=== PATIENT | male | born 1940 | race Caucasian/White ===

== ENCOUNTER 2016-08-29 05:31 | Inpatient (IN) ==
[2016-08-29] MEDS ORDERED: VANCOMYCIN INJ 1,000 MG in SODIUM CHLORIDE 0.9% 250 ML IV ONE (06:00)
[2016-08-29] MEDS ORDERED: ceFAZolin 2,000 MG in PREMIX 1 EACH IV ONE (06:00)
[2016-08-29] MEDS ORDERED: VANCOMYCIN 1,000 MG VIAL ONE (06:04)
[2016-08-29] MEDS ORDERED: LORazepam 1 MG TABLET PO ONE (06:30)
[2016-08-29] MEDS ORDERED: FAMOTIDINE 20 MG TABLET PO ONE (06:30)
[2016-08-29 06:42] LABS: Partial Thromboplastin Time 25.9 SECS (0-40)
[2016-08-29] MEDS: LACTATED RINGERS 1,000 ML IV SCH ×5 (07:45→23:00)
[2016-08-29] MEDS ORDERED: FAMOTIDINE 20 MG TABLET ONE (07:48)
[2016-08-29] MEDS ORDERED: LORazepam 1 MG TABLET ONE (07:48)
[2016-08-29] MEDS ORDERED: EPINEPHrine 1 MG/ML VIAL ONE (10:08)
[2016-08-29] MEDS ORDERED: methylPREDNISolone SOD SUC 125 MG/2 ML VIAL ONE (10:08)
[2016-08-29] MEDS ORDERED: MORPHINE 10 MG/1 ML VIAL ONE (10:08)
[2016-08-29] MEDS ORDERED: BUPIVACAINE 0.5% 50 ML VIAL ONE (10:08)
[2016-08-29] MEDS ORDERED: ONDANSETRON 4 MG/2 ML VIAL IV PRN ×2 (11:04→13:19)
[2016-08-29] MEDS ORDERED: diphenhydrAMINE CAP 25 MG CAPSULE PO PRN (11:04)
[2016-08-29] MEDS ORDERED: MORPHINE 2 MG/1 ML SYRINGE IV PRN (11:04)
[2016-08-29] MEDS ORDERED: MAGNESIUM HYDROXIDE SUSP 30 ML UDCUP PO PRN (11:04)
[2016-08-29] MEDS ORDERED: TEMAZEPAM 7.5 MG CAPSULE PO PRN (11:04)
[2016-08-29] MEDS ORDERED: MORPHINE PCA 30 MG/30 ML SYRINGE IV SCH (11:30)
[2016-08-29] MEDS ORDERED: TRANEXAMIC ACID 1,000 MG/10 ML VIAL IV ONE (12:31)
[2016-08-29] MEDS ORDERED: GLYCOPYRROLATE 0.4 MG/2 ML VIAL ONE (13:13)
[2016-08-29] MEDS ORDERED: ROCURONIUM 100 MG/10 ML VIAL IV ONE (13:13)
[2016-08-29] MEDS ORDERED: PHENYLEPHRINE 1 MG/10 ML SYRINGE IV ONE (13:13)
[2016-08-29] MEDS ORDERED: NEOSTIGMINE 10 MG/10 ML VIAL ONE (13:13)
[2016-08-29] MEDS ORDERED: PROPOFOL 200 MG/20 ML VIAL IV ONE (13:13)
[2016-08-29] MEDS ORDERED: ONDANSETRON 4 MG/2 ML VIAL ONE (13:13)
[2016-08-29] MEDS ORDERED: PHENYLEPHRINE 50 MG/5 ML VIAL ONE (13:13)
[2016-08-29] MEDS ORDERED: HYDROmorphone 2 MG/1 ML VIAL IV PRN (13:19)
[2016-08-29] MEDS ORDERED: MORPHINE PCA 30 MG/30 ML SYRINGE IV ONE (13:20)
[2016-08-29] MEDS ORDERED: MIDAZOLAM 2 MG/2 ML VIAL ONE (13:24)
[2016-08-29] MEDS ORDERED: fentaNYL 100 MCG/2 ML VIAL ONE (13:24)
[2016-08-29] MEDS ORDERED: SEVOFLURANE 1 UNIT/15 MINUTE INH ONE (13:24)
[2016-08-29] MEDS ORDERED: LACTATED RINGERS 2,000 ML IV ONE (13:25)
[2016-08-29] MEDS ORDERED: SODIUM CHLORIDE 0.9% 250 ML IV ONE (13:25)
[2016-08-29] MEDS ORDERED: ACETAMINOPHEN 1,000 MG/100 ML VIAL IV ONE (13:25)
[2016-08-29] MEDS ORDERED: ePHEDrine 50 MG/ML AMP ONE (13:27)
--- NOTE | 2016-08-29 13:33 | Anesthesia ---
Anesthesia Post OP - Post Ansesthetic Evaluation Patient seen in post op: Yes Resp: within normal limits CV: within normal limits Mental: within normal limits Temp: within normal limits [id number]: within normal limits Nausea and Vomiting: within normal limits Pain: within normal limits
[2016-08-29 13:36] LABS: Apearance,Urine CLEAR (Clear); Bilirubin,Urine Negative (Negative); Blood, Urine Negative (Negative); Glucose,Urine (UA) Negative (Negative); Ketones,Urine Negative (Negative); Nitrite,Urine Negative (Negative); Protein,Urine Negative; RBC,Urine <1 /HPF (0-4); Urine Color Straw (Yellow); Urine Specific Gravity 1.005 (1.001-1.035); Urine Urobilinogen < 2.0 EU/DL (0.2-1.0)
[2016-08-29 14:48] LABS: Basophils % 0.3 % (0.0-0.8); Eosinophils # 0.2 10*3/uL (0.0-0.87); Eosinophils % 1.4 % (0.00-10.9); Hemoglobin 13.6 GM/DL (14.0-18.0); Immature Granulocytes % 0.8 %; Immature Granulocytes Absolute 0.09 #; Lymphocytes # 1.7 10*3/uL (1.4-4.0); Lymphocytes % 14.1 % (21.2-54.2); Mean Corpuscular Hemoglobin 33 PG (27-34); Mean Corpuscular Volume 96.4 FL (87-102); Monocytes # 0.8 10*3/uL (0.11-0.8); Monocytes % 6.7 % (1.7-12.7); Neutrophils # 9.1 10*3/uL (1.4-7.4); Neutrophils % 76.7 % (38.7-73.9); Platelet Count 159 T/CUMM (130-400); Red Blood Count 4.15 MC/CUMM (3.8-5.5); Red Cell Distribution Width 13.4 % (9.3-17.3); White Blood Count 11.8 T/CUMM (4-12)
[2016-08-29 15:10] LABS: Calcium 8.3 MG/DL (8.5-10.1); Osmolality,Calculated 280.3 MOS/KG (273-304); Potassium 4.4 MMOL/L (3.5-5.1)
--- NOTE | 2016-08-29 15:36 | XRay Report ---
Referring Physician: Stevan Arciniega Exam: XR hip 1V RT Date: August 29, 2016 at 11:09 AM Reason: Joint replacement right hip Comparison: Right hip x-rays August 29, 2016 Findings: The patient is status post right total hip replacement. Position and alignment appear satisfactory. A surgical drain and surgical skin theresa are seen at the lateral aspect of the right hip. No acute fracture, dislocation or osseous destructive process is identified. Impression: The patient is status post right total hip replacement. Position and alignment appear satisfactory. PROCEDURE INTERPRETED AT [facility] DEPARTMENT OF RADIOLOGY Final Report Signed by: Dr. Mihir Anand
[2016-08-29] MEDS: KETOROLAC 15 MG/1 ML VIAL IV SCH ×2 (15:37→18:11)
[2016-08-29] MEDS: DILTIAZEM 90 MG TABLET PO SCH ×2 (15:44→21:24)
[2016-08-29] MEDS: ACETAMINOPHEN 500 MG TABLET PO SCH ×2 (15:44→20:42)
[2016-08-29] MEDS: ceFAZolin 2,000 MG in PREMIX 1 EACH IV SCH (15:45)
--- NOTE | 2016-08-29 16:33 | Orthopedic Progress Note ---
Assessment and Plan (1) Status post total replacement of right hip Status: Acute Assessment and plan: Restart Coumadin for DVT prophylaxis Routine postop antibiotics Out of bed with therapy twice daily Discharge planning Current Visit: Yes Orthopedics - Subjective Interval history: Patient has no complaints. Pain is controlled. He sitting in the chair at the bedside. On exam his dressings clean and dry, he is neurovascularly intact. Exam - Constitutional Vitals: Period Temp Pulse Resp BP Sys/Hodge Pulse Ox Last 24 Hr 97.4 F-98.0 F 82-115 14-18 103-158/70-100 95-99 Results - Labs CBC & BMP: 08/29/16 14:29 08/29/16 14:29 - Diagnostic Findings Procedure: X-ray: image reviewed by me (Radiographs show appropriate positioning of the right hip components)
[2016-08-29] MEDS: WARFARIN 5 MG TABLET PO SCH (18:10)
[2016-08-29] MEDS: DOCUSATE SODIUM 100 MG CAPSULE PO SCH (20:42)
[2016-08-30] MEDS: ceFAZolin 2,000 MG in PREMIX 1 EACH IV SCH (00:26)
[2016-08-30] MEDS: KETOROLAC 15 MG/1 ML VIAL IV SCH ×2 (00:32→06:39)
[2016-08-30] MEDS: ACETAMINOPHEN 500 MG TABLET PO SCH ×2 (03:06→09:25)
[2016-08-30 04:24] LABS: Basophils % 0.1 % (0.0-0.8); Hematocrit 38.8 VOL% (42.0-52.0); Hemoglobin 13.1 GM/DL (14.0-18.0); Immature Granulocytes % 0.6 %; Lymphocytes # 1.2 10*3/uL (1.4-4.0); Lymphocytes % 7.2 % (21.2-54.2); Mean Corpuscular HGB Conc 33.8 GM/DL (32-36); Mean Corpuscular Hemoglobin 33 PG (27-34); Mean Platelet Volume 11.4 FL (9.6-12.0); Monocytes # 0.9 10*3/uL (0.11-0.8); Monocytes % 5.8 % (1.7-12.7); Neutrophils # 13.8 10*3/uL (1.4-7.4); Neutrophils % 86.3 % (38.7-73.9); Platelet Count 172 T/CUMM (130-400); Red Cell Distribution Width 13.2 % (9.3-17.3)
[2016-08-30 04:49] LABS: Calcium 8.5 MG/DL (8.5-10.1); Osmolality,Calculated 280.4 MOS/KG (273-304); Potassium 4.2 MMOL/L (3.5-5.1)
[2016-08-30] MEDS ORDERED: ENOXAPARIN 40 MG/0.4 ML SYRINGE SUBCUT SCH (05:05)
--- NOTE | 2016-08-30 06:41 | Orthopedic Progress Note ---
Assessment and Plan (1) Status post total replacement of right hip Status: Acute Assessment and plan: Continue Coumadin Out of bed with therapy twice daily Discharge planning Current Visit: Yes Orthopedics - Subjective Interval history: Patient has no pain this morning. He is doing well. He is ready to work with therapy. On exam his dressings clean dry, his Hemovac is in place, he is neurovascular intact in the right lower extremity. Hemovac had 660 out yesterday. Exam - Constitutional Vitals: Period Temp Pulse Resp BP Sys/Hodge Pulse Ox Last 24 Hr 97.1 F-98.1 F 82-115 14-20 103-158/70-100 91-99 Results - Labs CBC & BMP: 08/30/16 03:23 08/30/16 03:23
[2016-08-30] MEDS: PRAVASTATIN 40 MG TABLET PO SCH (09:25)
[2016-08-30] MEDS: DILTIAZEM 90 MG TABLET PO SCH ×3 (09:25→20:28)
[2016-08-30] MEDS: METOPROLOL TARTRATE 100 MG TABLET PO SCH (09:25)
[2016-08-30] MEDS: hydroCHLOROthiazide 12.5 MG CAPSULE PO SCH (09:25)
[2016-08-30] MEDS: DOCUSATE SODIUM 100 MG CAPSULE PO SCH ×2 (09:25→20:28)
--- NOTE | 2016-08-30 10:32 | Discharge Summary ---
Hospital Course - Hospital Course Hospital Course: 76-year-old male admitted to hospital following total hip arthroplasty. He tolerated the procedure was transferred for stable condition postoperatively. He received routine antibiotics and was restarted on Coumadin for thromboprophylaxis. He was seen by physical therapy. Due to his age, comorbidities, social situation desire to be discharged to a nursing facility in [facility]. Once a bed was available, he subsequently discharged. At the time of discharge, his wound was clean and dry, had mild to moderate swelling of the right thigh. Diagnosis - Discharge Diagnosis (1) Status post total replacement of right hip Status: Acute Specialty Discharge - Follow Up or Referrals Follow up with: Stevan Arciniega MD [Physician] - 09/26/16 2:15 pm (3-4 weeks) Discharge Plan - Discharge Data Condition at Discharge: Stable Discharge Diet: advance to your usual diet Activity: ambulate only with your walker Hygiene: may shower Weight Bearing at Discharge: weight bear as tolerated Driving: not until seen by doctor Contact your physician if you experience:: fever over 101, Difficulty voiding, Redness or swelling, Nausea/Vomiting, Shortness of breath, Bleeding, pain uncontrolled by pain medications Wound / Dressing Care Instructions: remove island dressing on Friday, then change dressing daily. [place] out 09/11/2015. OK to shower, no tub soaks - Discharge Medications New Docusate Sodium Cap [Colace Cap] 100 mg PO BID capsule HYDROcodone/ACETAMIN 7.5-325 [[place] 7.5-325] 1 - 2 tablet PO Q4H PRN #60 tablet PRN Reason: Pain Moderate (4-7) Warfarin [Coumadin] 5 mg PO TuThSa@1800 tablet Warfarin [Coumadin] 10 mg PO Muir@1800 tablet Acetaminophen Tab [Tylenol Tab] 650 mg PO Q6H PRN #0 tablet PRN Reason: Pain Mild (1-3) Warfarin [Coumadin] 7.5 mg PO MoWeFr@1800 tablet Continue Warfarin Sodium [Jantoven] 7.5 mg PO TUTHSA Warfarin Sodium [Jantoven] 10 mg PO SUMOWEFR Pravastatin [Pravachol] 40 mg PO DAILY Metoprolol Tartrate 100 mg PO DAILY hydroCHLOROthiazide [Microzide] 12.5 mg PO DAILY dilTIAZem HCl [Diltiazem ER (12 hr)] 90 mg PO TID - Follow Up or Referral Follow Up: Stevan Arciniega MD [Physician] - 09/26/16 2:15 pm (3-4 weeks) - Forms/Instructions Additional Discharge Instructions: WBAT, hip precautions Exam - Constitutional Vitals: Period Temp Pulse Resp BP Sys/Hodge Pulse Ox Last 24 Hr 97.1 F-98.4 F 89-115 14-20 103-134/66-92 91-99 Discharge Results Procedures and tests throughout hospitalization: Pending Orders 08/31/16 04:00 Comp Blood Count Auto Diff IN AM Prothrombin Time INR IN AM 09/01/16 04:00 Comp Blood Count Auto Diff IN AM Prothrombin Time INR IN AM 09/02/16 04:00 Prothrombin Time INR IN AM 09/03/16 04:00 Prothrombin Time INR IN AM Labs on day of discharge: Labs from last 24 hours 08/30/16 08/30/16 08/29/16 03:23 03:23 14:29 WBC 16.0 H D RBC 4.00 Hgb 13.1 L Hct 38.8 L MCV 97.0 MCH 33 MCHC 33.8 RDW 13.2 Plt Count 172 MPV 11.4 Neut % (Auto) 86.3 H Lymph % (Auto) 7.2 L [place] % (Auto) 5.8 Eos % (Auto) 0.0 Baso % (Auto) 0.1 Neut # (Auto) 13.8 H Lymph # (Auto) 1.2 L [place] # (Auto) 0.9 H Eos # (Auto) 0.0 Baso # (Auto) 0.0 Immature Gran % 0.6 Nucleated RBC % 0.0 Immature Gran # 0.10 Nucleated RBCs # 0.00 Sodium 140 141 Potassium 4.2 4.4 Chloride 104 106 Carbon Dioxide 25 30 Anion Gap 15.2 H 9.4 BUN 12 11 Creatinine 0.90 0.90 GFR Calculation 114 114 BUN/Creatinine Ratio 13.00 12.00 Glucose 134 H 124 H Calculated Osmolality 280.4 280.3 Calcium 8.5 8.3 L Urine Color Urine Appearance Urine pH Ur Specific [place] Urine Protein Urine Glucose (UA) Urine Ketones Urine Blood Urine Nitrate Urine Bilirubin Urine Urobilinogen Urine Leukocytes Urine RBC Ur Culture Indicated? 08/29/16 08/29/16 14:29 13:30 WBC 11.8 RBC 4.15 Hgb 13.6 L Hct 40.0 L MCV 96.4 MCH 33 MCHC 34.0 RDW 13.4 Plt Count 159 MPV 11.0 Neut % (Auto) 76.7 H Lymph % (Auto) 14.1 L [place] % (Auto) 6.7 Eos % (Auto) 1.4 Baso % (Auto) 0.3 Neut # (Auto) 9.1 H Lymph # (Auto) 1.7 [place] # (Auto) 0.8 Eos # (Auto) 0.2 Baso # (Auto) 0.0 Immature Gran % 0.8 Nucleated RBC % 0.0 Immature Gran # 0.09 Nucleated RBCs # 0.00 Sodium Potassium Chloride Carbon Dioxide Anion Gap BUN Creatinine GFR Calculation BUN/Creatinine Ratio Glucose Calculated Osmolality Calcium Urine Color Straw Urine Appearance Clear Urine pH 8.0 Ur Specific [place] 1.005 Urine Protein Negative Urine Glucose (UA) Negative Urine Ketones Negative Urine Blood Negative Urine Nitrate Negative Urine Bilirubin Negative Urine Urobilinogen < 2.0 H Urine Leukocytes Negative Urine RBC <1 Ur Culture Indicated? Not indicated DS: Provider Date of admission: 08/29/16 05:31 Primary care physician: . No PCP Attending physician on admission: Stevan Arciniega MD Consults: 08/29/16 11:04 Consult to Case Mgmt/Social Srvs [CONS] Routine Reason for Case Mgmt/Social Srvs: Rehab Home Health Equipment Consult Comment: Bedside Commode, CPM, Walker Consult to Occupational Therapy [CONS] Routine Reason for Occupational Therapy: Evaluate and Treat Start Therapy: Tomorrow Consult Comment: ADL's Consult to Physical Therapy [CONS] Routine Reason for Physical Therapy: Evaluate and Treat Gait Training Start Therapy: Today 08/29/16 11:05 Consult to Physician [CONS] Routine Comment: Consulting Provider: Yusef Watson Consulting Provider Notified: Yes When should Consulting Provider be notified: Now Person Notified: jessa ornelas Date Notified: 08/29/16 Time Notified: 14:26 Consult Notification Comment: 08/29/16 12:00 Consult to Pharmacy [CONS] Routine Reason for Pharmacy Consult: Adjust Meds Renal Funct Discharging clinician: Stevan Arciniega MD
[2016-08-30] MEDS ORDERED: ACETAMINOPHEN 325 MG TABLET PO PRN (11:05)
--- NOTE | 2016-08-30 11:42 | Pulmonology Progress Note ---
Pulmonary - PN: Subj Interval history: Patient is a 76-year-old white man that came in yesterday and had a right hip replacement. He has significant degenerative arthritis. He has a history of hypertension and atrial fibrillation and had been on Coumadin. He says he did well with the surgery and is feeling quite well. He is not hurting too badly. He has not had any chest pain or shortness of breath or other problems. He feels like he is doing well postop. Exam (Progress Note) - Constitutional Vitals: Period Temp Pulse Resp BP Sys/Hodge Pulse Ox Last 24 Hr 97.1 F-98.4 F 89-115 14-20 103-134/66-92 91-99 General appearance: no acute distress, over weight - Head Head exam: Present: normal inspection, normocephalic - Eye Eye exam: Present: EOMI. Absent: scleral icterus Pupils: Present: BRAIN - ENT ENT exam: Present: normal exam - Neck Neck exam: Present: normal inspection. Absent: lymphadenopathy, thyromegaly - Respiratory Respiratory exam: Present: clear to auscultation bilaterally. Absent: wheezes - Cardiovascular Cardiovascular exam: Present: irregular rhythm. Absent: gallop, systolic murmur - GI/Abdominal GI/Abdominal exam: Present: normal bowel sounds, soft. Absent: organomegaly, tenderness - Extremities Exam Extremities exam: Present: other (Right leg is splinted). Absent: calf tenderness, edema - Neurological Exam Neurological exam: Present: alert, oriented X3, CN II-XII intact - Psychiatric Psychiatric exam: Present: normal affect - Skin Skin exam: Present: warm, dry Results - Labs CBC & BMP: 08/30/16 03:23 08/30/16 03:23 Assessment and Plan (1) Hypertension Status: Acute Assessment and plan: The patient is doing well postop and is hemodynamically stable. Current Visit: Yes (2) Atrial fibrillation Status: Acute Assessment and plan: Patient's heart rate is under good control and he will need anticoagulation postop. Current Visit: Yes (3) Status post total replacement of right hip Status: Acute Assessment and plan: Patient has hip replacement is doing well postop Current Visit: Yes Specialty Discharge - Follow Up or Referrals Follow up with: Stevan Arciniega MD [Physician] - (3-4 weeks)
--- NOTE | 2016-08-30 12:23 | Pathology Report from [facility] ---
ACCESSION # : [id number] PATIENT NAME : Anderson Alexandra ORDERING DR : Stevan Arciniega MD CLINICAL HX: RT hip osteoarthritis POST-OP DX: Same SPECIMEN INFO: RT hip bone & tissue GROSS DESCRIPTION: Specimen received in formalin labeled "ANDERSON ALEXANDRA" consists of femoral head measuring 5.2 x 5.2 x 5.5 cm. The articular surfaces are focally degenerative with an area of subchondral eburnation seen measuring 3.0 x 3.0 cm. The cut surfaces are smooth with some softening appreciated. Received separately in the specimen container are fragments of hemorrhagic bone and soft tissue measuring 13.0 x 4.0 cm in aggregate. Disability Program Navigator tissue submitted in one cassette following decalcification. DIAGNOSIS FOR ANDERSON ALEXANDRA: RIGHT HIP BONE AND TISSUE: Gross and microscopic findings consistent with osteoarthritis. No evidence of malignancy. SERVICE DATE: 08/29/2016 REPORT DATE: 08/30/2016 PATHOLOGIST: Louis Morales III, M.D. MTDD
[2016-08-30] MEDS ORDERED: TUBERCULIN SKIN TEST 0.1 ML SYRINGE INTRADERM ONE (12:48)
--- NOTE | 2016-08-30 12:50 | Case Mgmt Physician Query Form ---
TB Signs and Symptoms Screening ([place]) INSTRUCTIONS: To be completed annually on residents/staff with a significant Tuberculin Skin Test (TST) upon admission/hire or a prior significant TST. To be completed on all staff at hire. Please respond to each listed symptom with an (X) in either the "YES" or "NO" box. Do you currently have any of the following symptoms: YES NO ( ) ( x) A cough If yes, is it: ( ) Productive ( ) Non- productive ( ) ( x) Hemoptysis (spitting up blood) ( ) ( x) Chest pains ( ) ( x) Weight Loss ( ) ( x) Fever ( ) ( x) Night Sweats ( ) ( x) Weakness ( ) ( x) Loss of Appetite ( ) ( x) Difficulty Breathing If you answered YES" to any of the above questions, how long have symptoms been present? Comments: If you have any questions, please contact me. Thank you, Ida Raymond RN, Office : [phone] Email : [email or web address]
--- NOTE | 2016-08-30 13:53 | XRay Report ---
Referring Physician: Stevan Arciniega Exam: XR chest 1V portable Date: August 30, 2016 at 1:24 PM Reason: Shortness of breath Comparison: None Findings: The cardiac silhouette is enlarged. There is also mild calcified plaque at the aortic arch. No focal consolidation, pneumothorax or pleural effusion is identified. No acute osseous process is seen. Impression: 1. Cardiomegaly. 2. No acute pulmonary process is identified. PROCEDURE INTERPRETED AT [facility] DEPARTMENT OF RADIOLOGY Final Report Signed by: Dr. Mihir Anand
[2016-08-30] MEDS: WARFARIN 7.5 MG TABLET PO SCH (18:13)
[2016-08-31 02:16] LABS: Basophils % 0.2 % (0.0-0.8); Eosinophils % 0.2 % (0.00-10.9); Hematocrit 36.2 VOL% (42.0-52.0); Hemoglobin 12.4 GM/DL (14.0-18.0); Immature Granulocytes % 0.4 %; Immature Granulocytes Absolute 0.06 #; Lymphocytes # 2.2 10*3/uL (1.4-4.0); Lymphocytes % 13.4 % (21.2-54.2); Mean Corpuscular HGB Conc 34.3 GM/DL (32-36); Mean Corpuscular Hemoglobin 33 PG (27-34); Mean Corpuscular Volume 95.3 FL (87-102); Mean Platelet Volume 11.2 FL (9.6-12.0); Monocytes # 1.8 10*3/uL (0.11-0.8); Monocytes % 11.3 % (1.7-12.7); Neutrophils # 12.1 10*3/uL (1.4-7.4); Neutrophils % 74.5 % (38.7-73.9); Platelet Count 150 T/CUMM (130-400); Red Cell Distribution Width 13.3 % (9.3-17.3); White Blood Count 16.2 T/CUMM (4-12)
[2016-08-31 02:51] LABS: PT Patient Result 10.9 SECS
--- NOTE | 2016-08-31 06:47 | Orthopedic Progress Note ---
Orthopedics - Subjective Interval history: Mr. Mccormick wishes to go to a swing bed. Otherwise, no new complaints. Dressing is clean, dry and intact. Plan: Continue with physical therapy. Continue Coumadin. Discharge planning. Exam - Constitutional Vitals: Period Temp Pulse Resp BP Sys/Hodge Pulse Ox Last 24 Hr 98.0 F-98.9 F 73-116 14-18 119-142/66-86 92-99 Results - Labs CBC & BMP: 08/31/16 01:41 08/30/16 03:23 Specialty Discharge - Follow Up or Referrals Follow up with: Stevan Arciniega MD [Physician] - (3-4 weeks)
[2016-08-31] MEDS: hydroCHLOROthiazide 12.5 MG CAPSULE PO SCH (08:37)
[2016-08-31] MEDS: DOCUSATE SODIUM 100 MG CAPSULE PO SCH ×2 (08:37→20:23)
[2016-08-31] MEDS: PRAVASTATIN 40 MG TABLET PO SCH (08:37)
[2016-08-31] MEDS: METOPROLOL TARTRATE 100 MG TABLET PO SCH (08:37)
[2016-08-31] MEDS: DILTIAZEM 90 MG TABLET PO SCH ×3 (08:37→20:23)
[2016-08-31] MEDS: WARFARIN 5 MG TABLET PO SCH (17:11)
[2016-09-01 06:18] LABS: Basophils # 0.1 10*3/uL (0.0-0.2); Basophils % 0.4 % (0.0-0.8); Eosinophils # 0.1 10*3/uL (0.0-0.87); Hematocrit 36.9 VOL% (42.0-52.0); Immature Granulocytes % 0.5 %; Immature Granulocytes Absolute 0.06 #; Lymphocytes # 2.4 10*3/uL (1.4-4.0); Lymphocytes % 18.9 % (21.2-54.2); Mean Corpuscular HGB Conc 32.5 GM/DL (32-36); Mean Corpuscular Hemoglobin 32 PG (27-34); Mean Corpuscular Volume 98.4 FL (87-102); Mean Platelet Volume 11.4 FL (9.6-12.0); Monocytes # 1.9 10*3/uL (0.11-0.8); Neutrophils # 8.1 10*3/uL (1.4-7.4); Neutrophils % 64.2 % (38.7-73.9); Platelet Count 151 T/CUMM (130-400); Red Blood Count 3.75 MC/CUMM (3.8-5.5); Red Cell Distribution Width 13.4 % (9.3-17.3); White Blood Count 12.6 T/CUMM (4-12)
--- NOTE | 2016-09-01 07:34 | Orthopedic Progress Note ---
Orthopedics - Subjective Interval history: comfortable dressing dry. nv ok. INR pending. mobilize with therapy. Discharge planning. Exam - Constitutional Vitals: Period Temp Pulse Resp BP Sys/Hodge Pulse Ox Last 24 Hr 97.8 F-99.5 F 97-106 14-20 128-142/75-88 91-96 Results - Labs CBC & BMP: 09/01/16 05:00 08/30/16 03:23 Specialty Discharge - Follow Up or Referrals Follow up with: Stevan Arciniega MD [Physician] - (3-4 weeks)
[2016-09-01 08:21] LABS: INR 1.1; PT Patient Result 11.2 SECS
[2016-09-01] MEDS: PRAVASTATIN 40 MG TABLET PO SCH (08:52)
[2016-09-01] MEDS: hydroCHLOROthiazide 12.5 MG CAPSULE PO SCH (08:52)
[2016-09-01] MEDS: DILTIAZEM 90 MG TABLET PO SCH ×3 (08:52→21:22)
[2016-09-01] MEDS: METOPROLOL TARTRATE 100 MG TABLET PO SCH (08:53)
[2016-09-01] MEDS: DOCUSATE SODIUM 100 MG CAPSULE PO SCH ×2 (08:53→21:22)
[2016-09-01] MEDS ORDERED: WARFARIN 10 MG TABLET PO SCH (18:00)
[2016-09-02 06:29] LABS: INR 1.1; PT Patient Result 11.4 SECS
--- NOTE | 2016-09-02 08:29 | Orthopedic Progress Note ---
Assessment and Plan (1) Status post total replacement of right hip Status: Acute Assessment and plan: Patient has postoperative hematoma of the right thigh, will observe Continue Coumadin Continue therapy Discharge when bed available Current Visit: Yes Orthopedics - Subjective Interval history: Patient complains of pain and swelling along right leg. He has been up and walking without assistance. On exam he has got some edema throughout the thigh. His incisions clean and dry. He is neurovascularly intact to the leg. Exam - Constitutional Vitals: Period Temp Pulse Resp BP Sys/Hodge Pulse Ox Last 24 Hr 98.5 F-98.9 F 86-106 14-20 128-153/80-96 92-95 Results - Labs CBC & BMP: 09/01/16 05:00 08/30/16 03:23 Specialty Discharge - Follow Up or Referrals Follow up with: Stevan Arciniega MD [Physician] - 09/26/16 2:15 pm (3-4 weeks)
[2016-09-02] MEDS: DILTIAZEM 90 MG TABLET PO SCH ×3 (08:57→21:02)
[2016-09-02] MEDS: hydroCHLOROthiazide 12.5 MG CAPSULE PO SCH (08:57)
[2016-09-02] MEDS: PRAVASTATIN 40 MG TABLET PO SCH (08:59)
[2016-09-02] MEDS: METOPROLOL TARTRATE 100 MG TABLET PO SCH (09:00)
[2016-09-02] MEDS: DOCUSATE SODIUM 100 MG CAPSULE PO SCH ×2 (09:01→21:03)
--- NOTE | 2016-09-02 11:37 | Pulmonology Progress Note ---
Pulmonary - PN: Subj Interval history: Patient is a 76-year-old white man that came in yesterday and had a right hip replacement. He has significant degenerative arthritis. He has a history of hypertension and atrial fibrillation and had been on Coumadin. He says he had a fairly good weekend and is moving around a little better. He still has some soreness in his hip. He does want to go to a swing bed I think. He has not had any trouble with his breathing or heart rate. Exam (Progress Note) - Constitutional Vitals: Period Temp Pulse Resp BP Sys/Hodge Pulse Ox Last 24 Hr 98.5 F-98.9 F 71-106 14-20 128-153/80-96 92-95 Exam: General appearance: no acute distress, over weight, he looks fairly comfortable in bed. - Head Head exam: Present: normal inspection, normocephalic - Eye Eye exam: Present: EOMI. Absent: scleral icterus Pupils: Present: BRAIN - ENT ENT exam: Present: normal exam - Neck Neck exam: Present: normal inspection. Absent: lymphadenopathy, thyromegaly - Respiratory Respiratory exam: Present: clear to auscultation bilaterally. He is moving air well without any rales or wheezing. - Cardiovascular Cardiovascular exam: Present: irregular rhythm. His heart rate is under control. absent: gallop, systolic murmur - GI/Abdominal GI/Abdominal exam: Present: normal bowel sounds, soft. Absent: organomegaly, tenderness - Extremities Exam Extremities exam: Present: other (Right leg is splinted). Absent: calf tenderness, edema - Neurological Exam Neurological exam: Present: alert, oriented X3, CN II-XII intact - Psychiatric Psychiatric exam: Present: normal affect - Skin Skin exam: Present: warm, dry Results - Labs CBC & BMP: 09/01/16 05:00 08/30/16 03:23 Assessment and Plan (1) Hypertension Status: Acute Assessment and plan: The patient is doing well postop and is hemodynamically stable. Current Visit: Yes (2) Atrial fibrillation Status: Acute Assessment and plan: Patient's heart rate is under good control and he will need anticoagulation postop. He is back on his Coumadin now. Current Visit: Yes (3) Status post total replacement of right hip Status: Acute Assessment and plan: Patient has hip replacement and is doing well postop. He will probably go to rehab Current Visit: Yes Specialty Discharge - Follow Up or Referrals Follow up with: Stevan Arciniega MD [Physician] - 09/26/16 2:15 pm (3-4 weeks)
[2016-09-02] MEDS: WARFARIN 7.5 MG TABLET PO SCH (19:28)
[2016-09-03 07:07] LABS: INR 1.1
--- NOTE | 2016-09-03 07:54 | Orthopedic Progress Note ---
Assessment and Plan (1) Status post total replacement of right hip Status: Acute Assessment and plan: Continue Coumadin Continue therapy Discharge today Current Visit: Yes Orthopedics - Subjective Interval history: No new complaints Exam unchanged he has swelling in the thigh and calf Exam - Constitutional Vitals: Period Temp Pulse Resp BP Sys/Hodge Pulse Ox Last 24 Hr 98.1 F-99.3 F 71-116 18-20 123-154/78-96 94-97 Results - Labs CBC & BMP: 09/01/16 05:00 08/30/16 03:23 Specialty Discharge - Follow Up or Referrals Follow up with: Stevan Arciniega MD [Physician] - 09/26/16 2:15 pm (3-4 weeks)
[2016-09-03] MEDS: PRAVASTATIN 40 MG TABLET PO SCH (08:48)
[2016-09-03] MEDS: hydroCHLOROthiazide 12.5 MG CAPSULE PO SCH (08:49)
[2016-09-03] MEDS: METOPROLOL TARTRATE 100 MG TABLET PO SCH (08:49)
[2016-09-03] MEDS: DILTIAZEM 90 MG TABLET PO SCH (08:49)
[2016-09-03] MEDS: DOCUSATE SODIUM 100 MG CAPSULE PO SCH (08:52)
--- NOTE | 2016-09-03 09:01 | Pulmonology Progress Note ---
Pulmonary - PN: Subj Interval history: Patient is a 76-year-old white man that came in yesterday and had a right hip replacement. He has significant degenerative arthritis. He has a history of hypertension and atrial fibrillation and had been on Coumadin. He says he had a fairly good weekend and is moving around a little better. He still has some soreness in his hip. He is having bowel movements now. He feels like he is getting around better and is going to a swing bed. Exam (Progress Note) - Constitutional Vitals: Period Temp Pulse Resp BP Sys/Hodge Pulse Ox Last 24 Hr 98.1 F-99.3 F 87-116 18-20 123-154/78-92 94-97 Exam: General appearance: no acute distress, over weight, he looks fairly comfortable in bed. - Head Head exam: Present: normal inspection, normocephalic - Eye Eye exam: Present: EOMI. Absent: scleral icterus Pupils: Present: BRAIN - ENT ENT exam: Present: normal exam - Neck Neck exam: Present: normal inspection. Absent: lymphadenopathy, thyromegaly - Respiratory Respiratory exam: Present: clear to auscultation bilaterally. He is moving air well without any rales or wheezing. - Cardiovascular Cardiovascular exam: Present: irregular rhythm. His heart rate is under control. absent: gallop, systolic murmur - GI/Abdominal GI/Abdominal exam: Present: normal bowel sounds, soft. Absent: organomegaly, tenderness - Extremities Exam Extremities exam: Present: other (Right leg is splinted). He has some mild swelling but no increased tenderness. - Neurological Exam Neurological exam: Present: alert, oriented X3, CN II-XII intact - Psychiatric Psychiatric exam: Present: normal affect - Skin Skin exam: Present: warm, dry Results - Labs CBC & BMP: 09/01/16 05:00 08/30/16 03:23 Assessment and Plan (1) Hypertension Status: Acute Assessment and plan: The patient is doing well postop and is hemodynamically stable. Current Visit: Yes (2) Atrial fibrillation Status: Acute Assessment and plan: Patient's heart rate is under good control and he will need anticoagulation postop. He is back on his Coumadin now. Current Visit: Yes (3) Status post total replacement of right hip Status: Acute Assessment and plan: Patient has hip replacement and is doing well postop. He will probably go to rehab Current Visit: Yes Specialty Discharge - Follow Up or Referrals Follow up with: Stevan Arciniega MD [Physician] - 09/26/16 2:15 pm (3-4 weeks)
[2016-09-03 11:56] VITALS: BP 126/74
== END 2016-09-03 13:08 | DRG 470 ==
LOC: N.SDSINP 05:31 → N.3E 14:14
PROVIDERS: ADMIT Orthopaedic Surgery; ATTEND Orthopaedic Surgery